=== PATIENT | male | born 1990 | race Caucasian/White ===

== ENCOUNTER 2022-05-30 05:48 | Emergency (ER) | payer MEDICAID, OTHER ==
[~2022-05-30] VITALS: Ht 172.7 cm; Wt 70.9 kg
[2022-05-30 07:56] VITALS: BP 147/85
== END 2022-05-30 09:38 | disposition home or self-care (01) ==
LOC: EMS 05:51
DX: S00.81XA Abrasion of other part of head, initial encounter (principal); S61.011A Laceration without foreign body of right thumb without damage to nail, initial encounter; Z00.8 Encounter for other general examination; X58.XXXA Exposure to other specified factors, initial encounter; Y92.89 Other specified places as the place of occurrence of the external cause; Y93.89 Activity, other specified; Y99.8 Other external cause status
CPT/HCPCS: 99285